=== PATIENT | male | born 1980 | race African-American/Black ===

== ENCOUNTER 2019-07-08 06:52 | Emergency (ER) | payer OTHER ==
[~2019-07-08] VITALS: Ht 172.7 cm; Wt 68.5 kg
[~2019-07-08 06:52] MED LIST: FLUT9.9S NASAL; NAPR-985 PO; PSEU-79 PO
[2019-07-08 06:59] VITALS: BP 136/85; PULSE 77; RESP 18; Ht 172.7 cm; Wt 68.5 kg
== END 2019-07-08 07:32 | disposition home or self-care (01) ==
LOC: FTE 06:52
DX: R51 Headache (principal); J45.909 Unspecified asthma, uncomplicated; F17.210 Nicotine dependence, cigarettes, uncomplicated
CPT/HCPCS: 99282